=== PATIENT | female | born 2000 | race Caucasian/White ===

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

== ENCOUNTER 2022-02-09 11:35 | Emergency (ER) | payer OTHER ==
[~2022-02-09] VITALS: Wt 72.6 kg
[2022-02-09] MEDS ORDERED: PREDNISONE20 M1 PO (14:40)
[2022-02-09] MEDS ORDERED: PROVENTIL HFA6.7 GM INH (14:40)
== END 2022-02-09 15:50 | disposition home or self-care (01) ==
LOC: ED 11:35
DX: U07.1 COVID-19 (principal); Z88.1 Allergy status to other antibiotic agents